=== PATIENT | female | born 1965 | race Caucasian/White ===

== ENCOUNTER 2020-09-17 07:13 | Outpatient (REF) | payer OTHER, SELFPAY ==
[2020-09-17 11:52] LABS: Alanine Aminotransferase 17 U/L (0-31); Albumin Level 4.6 g/dL (3.5-5.0); Alkaline Phosphatase 92 U/L (39-117); Anion Gap 19 (12-20); Aspartate Amino Transferase 14 U/L (5-31); Bilirubin Total 0.3 mg/dL (0.0-1.0); Blood Urea Nitrogen 31 mg/dL (9-16); Calcium 9.4 mg/dL (8.4-10.2); Carbon Dioxide 18 mmol/L (22-29); Chloride 102 mmol/L (96-108); Cholesterol 216 mg/dL; Estimated Glomerular Filt Rate 33; Glucose Fasting 310 mg/dL (60-99); HDL Cholesterol 32 mg/dL; Sodium 134 mmol/L (135-145); Total Protein 8.4 g/dL (6.5-8.0); Triglycerides 500 mg/dL
[2020-09-17 12:17] LABS: Vitamin D 25-OH Total 17.4 ng/mL (>30)
== END 2020-09-17 07:14 | disposition home or self-care (01) ==
LOC: HO.HMGCLDS 07:13
PROVIDERS: PCP Internal Medicine; Visit Provider Internal Medicine
DX: I10 Essential (primary) hypertension (principal); E78.5 Hyperlipidemia, unspecified; Z78.0 Asymptomatic menopausal state
CPT/HCPCS: 36415; 80053; 80061; 82306

== ENCOUNTER 2020-09-22 07:52 | Outpatient (REF) | payer OTHER, SELFPAY ==
[2020-09-22 12:10] LABS: Estimated Average Glucose 341 mg/dL; Hemoglobin A1c % 13.5 %
[2020-09-23 07:57] LABS: LDL Cholesterol Direct 133 mg/dL (<100)
== END 2020-09-22 07:53 | disposition home or self-care (01) ==
LOC: HO.HMGCLDS 07:52
PROVIDERS: PCP Internal Medicine; Visit Provider Internal Medicine
DX: E11.65 Type 2 diabetes mellitus with hyperglycemia (principal); Z79.4 Long term (current) use of insulin
CPT/HCPCS: 36415; 83036; 83721

== ENCOUNTER 2021-06-13 15:09 | Outpatient (REF) | payer OTHER, SELFPAY ==
[2021-06-13 15:21] LABS: Appearance Urine CLEAR; Color Urine YELLOW; Glucose Urine UA 500 MG/DL (NEG); Leukocyte Esterase Urine NEG (NEG); Nitrite Urine NEG (NEG); UACC Culture Trigger NO; Urine Blood TRACE (NEG); Urine Ketones NEG (NEG); Urine Protein 2+ MG/DL (NEG-TRACE)
[2021-06-13 15:39] LABS: RBC Urine 0-2 /HPF (0); WBC Urine 0-2 /HPF (0-4)
[2021-06-13 15:40] LABS: Bacteria Urine TRACE /LPF; Squamous Epithelial Cell Urine 1+ /LPF
== END 2021-06-13 15:10 | disposition home or self-care (01) ==
LOC: HO.LNP 15:09
PROVIDERS: Visit Provider Physician Assistant Medical
DX: R35.89 Other polyuria (principal); R30.0 Dysuria; Z20.822 Contact with and (suspected) exposure to COVID-19
CPT/HCPCS: 81001; U0003; U0005